=== PATIENT | male | born 1955 | race Caucasian/White ===

== ENCOUNTER → 2021-04-22 14:33 | Outpatient (BNVA) | payer OTHER, SELFPAY | PROVIDERS: Visit Provider Urology | DX: N40.1 Benign prostatic hyperplasia with lower urinary tract symptoms (principal); N41.1 Chronic prostatitis; R39.12 Poor urinary stream | CPT/HCPCS: Q3014 ==

== ENCOUNTER → 2022-04-27 10:01 | Outpatient (BNVA) | payer OTHER, SELFPAY | PROVIDERS: PCP Internal Medicine; Visit Provider Urology | DX: N40.1 Benign prostatic hyperplasia with lower urinary tract symptoms (principal); N41.1 Chronic prostatitis | CPT/HCPCS: 51798; 99212 ==

== ENCOUNTER 2023-04-25 10:23 | Outpatient (AMB) | payer MEDICARE, SELFPAY ==
--- NOTE | 2023-04-25 10:40 | A.OFFVIS_ITS ---
Intake Intake Visit Reasons: 1Y PVR Intake Note: Patient is Present for Follow Up Urology Medication: Doxazosin, Finasteride, Antibiotic Allergies: Penicillin Blood Thinners: None PVR: 0ml Allergies penicillin G Allergy (Unknown, Verified 04/25/23 10:43) childhood Medication List - Last Reconciled 04/25/23 by Boni Luna MD cetirizine 10 mg PO DAILY doxazosin 4 mg PO BEDTIME 90 days finasteride 5 mg PO DAILY 90 days fluticasone propionate 50 mcg/actuation sprays intranasal HPI HPI Comments History of Present Illness Details Augusto NATH is a very pleasant male. He is a patient of Dr Cohen. He is seen for the following urologic conditions. - prostatitis - lower urinary tract symptoms Yearly follow-up On combination therapy finasteride and doxazosin Prostate 2+ soft PVR 0 Check PSA next year Doing well with emptying Refills provided Prostatitis/CPPS:? They present for?further evaluation of, chronic prostatitis.? He is currently being treated with?04/04 PSA 9.2 - no symptoms reported, has intellectual impairment ?07/06 PSA 2.3, 01/03 PSA 7.4 ?07/07 2.1, 01/04 1.8, 04/07 4.6, 05/12 2.5 PFSH Medical History Benign prostatic hyperplasia with lower urinary tract symptoms Weak urinary stream Chronic prostatitis Elevated PSA measurement Review of Systems Const Denies chills and Denies fever(s) Card Reports no additional complaints and Denies syncope Resp Denies cough GI Denies abdominal pain and Denies heartburn Reports as per HPI and Denies change in libido Neuro Denies syncope Psych Denies change in libido Endo Denies change in libido Physical Exam Const General: cooperative, healthy appearing, comfortable and no acute distress Orientation/consciousness: patient oriented x3 HEENT Face and sinus: Yes normal facial exam Mouth: moist mucous membranes Neck Neck: Yes normal visual inspection, Yes full ROM and Yes trachea midline Chest Chest palpation & inspection: normal inspection of the chest Resp Effort & Inspection: normal respiratory effort, able to speak in complete sente nces and no respiratory distress GI Inspection: Yes normal to inspection Back/Spine/Pelvis Cervical Spine: normal cervical lordosis Thoracic/Lumbar Spine: thoracic and lumbar spine normal to inspection Skin General skin exam: no rashes or lesions noted Neuro General: patient oriented x3, gait normal, tone normal and moves all extremities Extrem General: Yes normal to inspection and Yes capillary refill normal Office Procedures Post Void Residual Post Residual Void Post Void Residual (PVR): 0 10490-Bohq Void Residual by ultrasound Assessment & Plan Assessment & Plan (1) Chronic prostatitis: Code(s): N41.1 - Chronic prostatitis (2) Elevated PSA measurement: Code(s): R97.20 - Elevated prostate specific antigen [PSA] (3) Benign prostatic hyperplasia with lower urinary tract symptoms: Code(s): N40.1 - Benign prostatic hyperplasia with lower urinary tract symptoms Plan Twelve month follow-up Orders: Orders Prostate Specific Antigen 04/20/23 R97.20 - Elevated prostate specific antigen [PSA] AMB Post Void Residual by ultrasound Today N40.1 - Benign prostatic hyperplasia with lower urinary tract symptoms Prostate Specific Antigen 364 Days R97.20 - Elevated prostate specific antigen [PSA] Patient Instructions: Imaging studies, laboratory and physical exam results were discussed and reviewed in detail. No major barriers to patient understanding were identified. An opportunity to ask questions regarding the treatment plan was provided. All questions were answered. The patient expressed understanding and agreement with the above treatment plan. The patient is aware they should contact our office by phone for worsening of their current condition or the appearance of new urologic symptoms. Compliance is encouraged with any medications and followup testing that is ordered. It is a privilege to participate in the urologic care of your patient. If you have any questions or concerns regarding treatment for the above conditions, or other urologic issues, please do not hesitate to contact me. The office telephone contact is [phone]. This note is constructed using voice recognition software. While every effort has been made to ensure accuracy assembly repairer errors may have been included. Yours sincerely, Dr Boni Luna MD, [facility] - Urology Providers of Expert, Compassionate Care for the Genitourinary System Coding Level of Care Code Est Pt Level 4 (91828) Diagnoses Chronic prostatitis N41.1 Elevated PSA measurement R97.20 Benign prostatic hyperplasia with lower urinary tract symptoms N40.1 CPT Codes Post Residual Void - PVR CPT Code: 42455-[facility] Void Residual by ultrasound ([id number])
== END 2023-04-25 11:16 | disposition home or self-care (01) ==
LOC: HO.HUSH 10:23
PROVIDERS: PCP Internal Medicine; Visit Provider Urology
DX: N41.1 Chronic prostatitis (principal); R97.20 Elevated prostate specific antigen [PSA]; N40.1 Benign prostatic hyperplasia with lower urinary tract symptoms
CPT/HCPCS: 99214

== ENCOUNTER → 2023-04-25 10:23 | Outpatient (BNVA) | payer MEDICARE, MEDICAID, SELFPAY | PROVIDERS: PCP Internal Medicine; Visit Provider Urology | DX: N40.1 Benign prostatic hyperplasia with lower urinary tract symptoms (principal); N41.1 Chronic prostatitis; R97.20 Elevated prostate specific antigen [PSA] | CPT/HCPCS: 51798; 99212 ==

== ENCOUNTER 2024-04-25 13:00 | Outpatient (AMB) | payer MEDICARE, MEDICAID, SELFPAY ==
--- NOTE | 2024-04-25 13:22 | MHC.OFFVIS ---
Intake Visit Reasons: 1Y PSA(set) Intake Note: Patient is Present for Follow Up PSA Urology Medication: Finasteride, Doxazosin Antibiotic Allergies: Penicillin Blood Thinners: None PSA 04/15/2024 3.7 Last PVR:0 Valve And Regulator Repairer Required: No Allergies penicillin G Allergy (Unknown, Verified 04/25/24 13:34) childhood HPI Comments Details: Augusto NATH is a very pleasant male with developmental delay. He is a patient of Dr Post. He is seen for the following urologic conditions. - prostatitis - lower urinary tract symptoms Yearly follow-up On combination therapy finasteride and doxazosin Prostate 2+ soft PVR 0 Variability to PSA Has remained within a reduced range since initiating finasteride Prostatitis/CPPS:? They present for?further evaluation of, chronic prostatitis.? He is currently being treated with?04/04 PSA 9.2 - no symptoms reported, has intellectual impairment ?07/06 PSA 2.3, 01/03 PSA 7.4 ?07/07 2.1, 01/04 1.8, 04/07 4.6, 05/10 1.6 , 04/10 3.7 PFSH Medical History Benign prostatic hyperplasia with lower urinary tract symptoms Weak urinary stream Chronic prostatitis Elevated PSA measurement Review of Systems Const Denies chills and Denies fever(s) Card Reports no additional complaints and Denies syncope Resp Denies cough GI Denies abdominal pain and Denies heartburn Reports as per HPI and Denies change in libido Neuro Denies syncope Psych Denies change in libido Endo Denies change in libido Physical Exam Const General: cooperative, healthy appearing, comfortable and no acute distress Orientation/consciousness: patient oriented x3 HEENT Face and sinus: Yes normal facial exam Mouth: moist mucous membranes Neck Neck: Yes normal visual inspection, Yes full ROM and Yes trachea midline Chest Chest palpation & inspection: normal inspection of the chest Resp Effort & Inspection: normal respiratory effort, able to speak in complete sentences and no respiratory distress GI Inspection: Yes normal to inspection Back/Spine/Pelvis Cervical Spine: normal cervical lordosis Thoracic/Lumbar Spine: thoracic and lumbar spine normal to inspection Skin General skin exam: no rashes or lesions noted Neuro General: patient oriented x3, gait normal, tone normal and moves all extremities Extrem General: Yes normal to inspection and Yes capillary refill normal Assessment & Plan Assessment & Plan (1) Chronic prostatitis: Code(s): N41.1 - Chronic prostatitis Category: Medical (2) Benign prostatic hyperplasia with lower urinary tract symptoms: Code(s): N40.1 - Benign prostatic hyperplasia with lower urinary tract symptoms Category: Medical Plan Twelve month follow-up PSA Refill provided Orders: Orders Prostate Specific Antigen 364 Days N41.1 - Chronic prostatitis Medications: Refilled doxazosin 4 mg PO BEDTIME 90 days 90 tabs 3RF N13.8 - Other obstructive and reflux uropathy, N40.1 - Benign prostatic hyperplasia with lower urinary tract symptoms finasteride 5 mg PO DAILY 90 days 90 tabs 3RF N40.1 - Benign prostatic hyperplasia with lower urinary tract symptoms Patient Instructions: Imaging studies, laboratory and physical exam results were discussed and reviewed in detail. No major barriers to patient understanding were identified. An opportunity to ask questions regarding the treatment plan was provided. All questions were answered. The patient expressed understanding and agreement with the above treatment plan. The patient is aware they should contact our office by phone for worsening of their current condition or the appearance of new urologic symptoms. Compliance is encouraged with any medications and followup testing that is ordered. It is a privilege to participate in the urologic care of your patient. If you have any questions or concerns regarding treatment for the above conditions, or other urologic issues, please do not hesitate to contact me. The office telephone contact is [phone]. This note is constructed using voice recognition software. While every effort has been made to ensure accuracy customs entry writer errors may have been included. Yours sincerely, Dr Boni Luna MD, [facility] - Urology Providers of Expert, Compassionate Care for the Genitourinary System Coding Level of Care Code Est Pt Level 4 (42934) Diagnoses Chronic prostatitis N41.1 Benign prostatic hyperplasia with lower urinary tract symptoms N40.1
== END 2024-04-25 14:05 | disposition home or self-care (01) ==
PROVIDERS: PCP Internal Medicine; Visit Provider Urology
DX: N41.1 Chronic prostatitis (principal); N40.1 Benign prostatic hyperplasia with lower urinary tract symptoms
CPT/HCPCS: 99214

== ENCOUNTER → 2024-04-25 13:00 | Outpatient (BNVA) | payer MEDICARE, SELFPAY | PROVIDERS: PCP Internal Medicine; Visit Provider Urology | DX: N40.1 Benign prostatic hyperplasia with lower urinary tract symptoms (principal); N41.1 Chronic prostatitis | CPT/HCPCS: 99212 ==

== ENCOUNTER 2025-04-29 14:57 | Outpatient (AMB) | payer MEDICARE, MEDICAID, SELFPAY ==
--- NOTE | 2025-04-29 15:02 | MHC.OFFVIS ---
Intake Visit Reasons: 1Y PSA/PVR Intake Note: Patient is present for PVR/PSA Urology Med: Doxazosin, Finasteride Antibiotic Allergy: Penicillin Blood Thinner: None 04/23/2025- PSA 1.8 Last PVR:0 PVR: 0 Allergies penicillin G Allergy (Unknown, Verified 04/25/24 13:34) childhood HPI Comments Details: Augusto NATH is a very pleasant male with developmental delay. He is a patient of Dr Post. He is seen for the following urologic conditions. - prostatitis - lower urinary tract symptoms Yearly follow-up PVR remains low PSA low On combination therapy finasteride and doxazosin Prostate 2+ soft Variability to PSA Has remained within a reduced range since initiating finasteride Prostatitis/CPPS:? They present for?further evaluation of, chronic prostatitis.? He is currently being treated with?04/04 PSA 9.2 - no symptoms reported, has intellectual impairment ?07/06 PSA 2.3, 01/03 PSA 7.4 ?07/07 2.1, 01/04 1.8, 04/07 4.6, 05/10 1.6 , 04/10 3.7, 05/12 1.8 [facility] [place] Medical History Benign prostatic hyperplasia with lower urinary tract symptoms Weak urinary stream Chronic prostatitis Elevated PSA measurement Review of Systems Const Denies chills and Denies fever(s) Card Reports no additional complaints and Denies syncope Resp Denies cough GI Denies abdominal pain and Denies heartburn Reports as per HPI and Denies change in libido Neuro Denies syncope Psych Denies change in libido Endo Denies change in libido Physical Exam Const General: cooperative, healthy appearing, comfortable and no acute distress Orientation/consciousness: patient oriented x3 HEENT Face and sinus: Yes normal facial exam Mouth: moist mucous membranes Neck Neck: Yes normal visual inspection, Yes full ROM and Yes trachea midline Chest Chest palpation & inspection: normal inspection of the chest Resp Effort & Inspection: normal respiratory effort, able to speak in complete sentences and no respiratory distress GI Inspection: Yes normal to inspection Back/Spine/Pelvis Cervical Spine: normal cervical lordosis Thoracic/Lumbar Spine: thoracic and lumbar spine normal to inspection Skin General skin exam: no rashes or lesions noted Neuro General: patient oriented x3, gait normal, tone normal and moves all extremities Extrem General: Yes normal to inspection and Yes capillary refill normal Office Procedures Post Void Residual Post Residual Void Post Void Residual (PVR): 0 12428-Xfej Void Residual by ultrasound Assessment & Plan Assessment & Plan (1) Elevated PSA measurement: Code(s): R97.20 - Elevated prostate specific antigen [PSA] Category: Medical (2) Chronic prostatitis: Code(s): N41.1 - Chronic prostatitis Category: Medical (3) Weak urinary stream: Code(s): R39.12 - Poor urinary stream Category: Medical Plan Twelve month follow-up Orders: Orders AMB Post Void Residual by ultrasound Today N40.1 - Benign prostatic hyperplasia with lower urinary tract symptoms Prostate Specific Antigen 12 Months N40.1 - Benign prostatic hyperplasia with lower urinary tract symptoms Medications: Refilled finasteride 5 mg PO DAILY 90 tabs 3RF 90 days N40.1 - Benign prostatic hyperplasia with lower urinary tract symptoms doxazosin 4 mg PO BEDTIME 90 tabs 3RF 90 days N13.8 - Other obstructive and reflux uropathy, N40.1 - Benign prostatic hyperplasia with lower urinary tract symptoms Patient Instructions: This note is constructed using voice recognition software. While every effort has been made to ensure accuracy front end application developer errors may have been included. Imaging studies, laboratory and physical exam results were discussed and reviewed in detail. No major barriers to patient understanding were identified. An opportunity to ask questions regarding the treatment plan was provided. All questions were answered. The patient expressed understanding and agreement with the above treatment plan. The patient is aware they should contact our office by phone for worsening of their current condition or the appearance of new urologic symptoms. Compliance is encouraged with any medications and followup testing that is ordered. It is a privilege to participate in the urologic care of your patient. If you have any questions or concerns regarding treatment for the above conditions, or other urologic issues, please do not hesitate to contact me. The office telephone contact is [phone]. Sincerely, Dr Boni Luna MD, [facility] - Urology Compassionate Specialist Care for the Genitourinary System Coding Level of Care Code Est Pt Level 4 (11924) Diagnoses Elevated PSA measurement R97.20 Chronic prostatitis N41.1 Weak urinary stream R39.12 CPT Codes Post Residual Void - PVR CPT Code: 50925-Uvfv Void Residual by ultrasound ([id number])
== END 2025-04-29 15:37 | disposition home or self-care (01) ==
PROVIDERS: PCP Internal Medicine; Visit Provider Urology
DX: R97.20 Elevated prostate specific antigen [PSA] (principal); N41.1 Chronic prostatitis; R39.12 Poor urinary stream
CPT/HCPCS: 99214

== ENCOUNTER → 2025-04-29 14:57 | Outpatient (BNVA) | payer MEDICARE, MEDICAID, SELFPAY | PROVIDERS: PCP Internal Medicine; Visit Provider Urology | DX: R97.20 Elevated prostate specific antigen [PSA] (principal); N41.1 Chronic prostatitis; R39.12 Poor urinary stream | CPT/HCPCS: 51798; 99212 ==